=== PATIENT | male | born 1960 | race African-American/Black ===

== ENCOUNTER 2021-11-03 23:16 | Emergency (ER) | payer OTHER ==
[2021-11-04] MEDS ORDERED: ACETAMINOPHEN 325 MG TAB PO ONE (00:45)
[2021-11-04] MEDS ORDERED: HYDROcodone-ACET 10/325MG TAB PO ONE (08:45)
[2021-11-04] MEDS ORDERED: ONDANSETRON ODT 4 MG TAB PO ONE (08:45)
[2021-11-04] MEDS ORDERED: ACE3T PO (09:31)
[2021-11-04] MEDS ORDERED: CYCL-837 PO (09:31)
[2021-11-04 10:05] VITALS: BP 167/97
== END 2021-11-04 10:16 | disposition home or self-care (01) ==
LOC: ER 23:16
DX: S39.012A Strain of muscle, fascia and tendon of lower back, initial encounter (principal); M47.816 Spondylosis without myelopathy or radiculopathy, lumbar region; X58.XXXA Exposure to other specified factors, initial encounter; Y93.01 Activity, walking, marching and hiking; Y92.89 Other specified places as the place of occurrence of the external cause; Y99.8 Other external cause status
CPT/HCPCS: 72131; 81002; 99284; Q0162